=== PATIENT | male | born 1995 | race Hispanic/Latino ===

== ENCOUNTER 2016-07-11 19:39 | Emergency (ER) | payer OTHER ==
[2016-07-11] MEDS ORDERED: NACL 0.9% 1000 ML 1,000 ML IV ONE (19:45)
[2016-07-11 20:14] LABS: Basophils % (Auto) 0.4 % (0.0-1.8); Eosinophils % (Auto) 1.3 % (0.0-4.3); Hematocrit 42.9 % (35.5-45.6); Hemoglobin 15.2 gm/dl (11.8-15.2); Mean Corpuscular HGB Conc 36 % (32-34); Mean Corpuscular Hemoglobin 29 pg (28-32); Mean Corpuscular Volume 83 fl (84-94); Platelet Count 308 K/mm3 (140-440); Red Blood Count 5.19 M/mm3 (3.65-5.03); White Blood Count 12.1 K/mm3 (4.5-11.0)
[2016-07-11 20:19] LABS: Bilirubin,Urine NEG (Negative); Blood,Urine NEG (Negative); Ketones,Urine NEG (Negative); Leukocyte Esterase,Urine NEG (Negative); Mucus,Urine FEW /HPF; Nitrite,Urine NEG (Negative); Protein,Urine <15 mg/dL mg/dL (Negative); Urobilinogen,Urine < 2.0 mg/dL (<2.0)
[2016-07-11 20:23] LABS: INR 1.03 (0.87-1.13)
[2016-07-11 20:24] LABS: Partial Thromboplastin Time 30.3 Sec. (24.2-36.6)
[2016-07-11 20:34] LABS: Alanine Aminotransferase 13 units/L (7-56); Albumin 4.7 g/dL (3.9-5); Albumin/Globulin Ratio 1.9 %; Alkaline Phosphatase 62 units/L (35-129); Anion Gap 16 mmol/L; BUN/Creatinine Ratio 16.25; Blood Urea Nitrogen 13 mg/dL (9-20); Calcium 9.4 mg/dL (8.4-10.2); Carbon Dioxide 25 mmol/L (22-30); Chloride 101.5 mmol/L (98-107); Glucose 82 mg/dL (75-100); Lipase 32 units/L (13-60); Potassium 3.6 mmol/L (3.6-5.0); Sodium 139 mmol/L (137-145); Total Protein 7.2 g/dL (6.3-8.2)
--- NOTE | 2016-07-11 21:36 | Emergency Department Report ---
ED GI Bleed HPI - General Chief complaint: GI Bleed Stated complaint: STOMACH PAIN W/BLOODY STOOL Time Seen by Provider: 07/11/16 21:20 Source: patient, RN notes reviewed Mode of arrival: Ambulatory Limitations: No Limitations - History of Present Illness Initial comments: 21-year-old male presents to the emergency department complaining of abdominal pain and bright red blood in his stool. Patient reports symptoms began this morning. He is had 2 separate bowel movements with bright red blood today. He denies diarrhea. Abdominal pain has been intermittent. He describes the pain as sharp. He denies pain with bowel movement. Pain spontaneously resolves. He denies fever. There's been no nausea or vomiting. There are no other complaints. MD complaint: blood streaked stool -: Sudden, This morning Location: periumbilical, LUQ, suprapubic Radiation: none Severity scale (0 -10): 3 Quality: sharp Consistency: intermittent, now resolved Improves with: none Worsens with: none Associated Symptoms: denies other symptoms - Related Data Home Medications Medication Instructions Recorded Confirmed Last Taken Doxycycline [Vibramycin] 100 mg PO Q12HR 07/11/16 07/11/16 07/11/16 Norfloxacin-400 1 tab PO Q12H 07/11/16 07/11/16 07/11/16 Pantoprazole [Protonix TAB] 20 mg PO QDAY 07/11/16 07/11/16 07/11/16 Previous Rx's Medication Instructions Recorded Last Taken Type Dicyclomine [Bentyl] 20 mg PO QID PRN #20 tablet 07/11/16 Unknown Rx Allergies Allergy/AdvReac Type Severity Reaction Status Date / Time shellfish derived Allergy Swelling Verified 07/11/16 19:45 ED Review of Systems ROS: Stated complaint: STOMACH PAIN W/BLOODY STOOL Other details as noted in HPI Comment: All other systems reviewed and negative Gastrointestinal: abdominal pain, hematochezia ED Past Medical Hx - Past Medical History Previous Medical History?: No - Surgical History Past Surgical History?: No - Social History Smoking Status: Never Smoker Substance Use Type: Alcohol - Medications Home Medications: Home Medications Medication Instructions Recorded Confirmed Last Taken Type Dicyclomine [Bentyl] 20 mg PO QID PRN #20 tablet 07/11/16 Unknown Rx Doxycycline [Vibramycin] 100 mg PO Q12HR 07/11/16 07/11/1617 History Norfloxacin-400 1 tab PO Q12H 07/11/16 07/11/16 07/11/16 History Pantoprazole [Protonix TAB] 20 mg PO QDAY 07/11/16 07/11/16 07/11/16 History ED Physical Exam - General Limitations: No Limitations General appearance: alert, in no apparent distress - Head Head exam: Present: atraumatic, normocephalic - Eye Eye exam: Present: normal appearance, PERRL, EOMI - ENT ENT exam: Present: normal exam, normal orophraynx, mucous membranes moist - Neck Neck exam: Present: normal inspection, full ROM. Absent: tenderness - Respiratory Respiratory exam: Present: normal lung sounds bilaterally. Absent: respiratory distress - Cardiovascular Cardiovascular Exam: Present: regular rate, normal rhythm, normal heart sounds - GI/Abdominal GI/Abdominal exam: Present: soft, normal bowel sounds. Absent: distended, tenderness - Rectal Rectal exam: Present: normal inspection, normal rectal tone. Absent: hemorrhoids - Extremities Exam Extremities exam: Present: normal inspection, full ROM. Absent: tenderness - Back Exam Back exam: Present: normal inspection, full ROM. Absent: tenderness - Neurological Exam Neurological exam: Present: alert, oriented X3. Absent: motor sensory deficit - Skin Skin exam: Present: warm, dry, intact ED Course Vital Signs 07/11/16 07/11/16 19:46 21:49 Temperature 98.2 F 98.7 F Pulse Rate 109 H 92 H Respiratory 20 16 Rate Blood Pressure 122/85 110/56 [Right] O2 Sat by Pulse 100 100 Oximetry ED Medical Decision Making - Lab Data Result diagrams: 07/11/16 19:58 07/11/16 19:58 - Radiology Data Radiology results: report reviewed, image reviewed CT of the abdomen and pelvis reveals no acute intra-abdominal abnormality. - Medical Decision Making Lab and imaging results reviewed and discussed with the patient. Patient will be discharged home at this time to follow up with his primary care physician. - Differential Diagnosis GI bleed, anemia, internal hemorrhoids, enteritis Critical care attestation.: If time is entered above; I have spent that time in minutes in the direct care of this critically ill patient, excluding procedure time. ED Disposition Clinical Impression: Blood in stool, Generalized abdominal pain Disposition: DISCHARGED TO HOME OR SELFCARE Is pt being admited?: No Condition: Stable Instructions: Abdominal Pain (ED), Rectal Bleeding (ED) Prescriptions: Dicyclomine [Bentyl] 20 mg PO QID PRN #20 tablet PRN Reason: Pain Referrals: PRIMARY CARE, [Primary Care Provider] - 3-5 Days Forms: Accompanied Note Time of Disposition: 23:00
[2016-07-11 21:49] VITALS: BP 110/56
[2016-07-11] MEDS ORDERED: NACL ONE (22:14)
--- NOTE | 2016-07-11 22:45 | Cat Scan Report ---
FINAL REPORT EXAM: CT ABDOMEN PELVIS W CON HISTORY: abdominal pain with blood in stool TECHNIQUE: Standard enhanced CT of the abdomen and pelvis. Delayed images through through the kidneys and bladder were obtained. Coronal and sagittal reconstruction was also performed. Contrast: 100 cc Omnipaque 300 given IV. PRIORS: None. FINDINGS: Within the abdomen, the liver, spleen, pancreas, gallbladder, adrenal glands, and kidneys are unremarkable. No evidence for retroperitoneal or pelvic lymphadenopathy is seen. The bowel loops have normal caliber. There is stool is present throughout the colon. No soft tissue mass, fluid collection, inflammatory change, or free air is seen within the abdomen or pelvis. The appendix is normal located near midline in the right pelvis. Within the pelvis, the bladder is unremarkable. Bilateral ureteral jets are present on delayed imaging. The prostate is normal. No evidence for mass or lymphadenopathy is seen in the pelvis. Images through the upper abdomen include the lung bases which are expanded and clear. Bony structures show no focal abnormalities and are intact. IMPRESSION: No acute intra-abdominal process noted.
== END 2016-07-11 23:26 | disposition home or self-care (01) ==
LOC: ED 19:39
DX: K92.1 Melena (principal); R10.84 Generalized abdominal pain; Z91.013 Allergy to seafood
CPT/HCPCS: 36415; 74177; 80053; 81001; 83690; 85025; 85610; 85730; 86850; 86900; 86901; 93005; 93010; 99285; Q9967